=== PATIENT | female | born 2000 | race Asian ===

== ENCOUNTER 2021-07-02 15:00 | Emergency (ER) | payer BC, SELFPAY ==
[2021-07-02 15:39] VITALS: BP 115/68; PULSE 74; O2SAT 97
[2021-07-02 15:40] VITALS: PULSE 60; RESP 18; TEMP 36.3; O2SAT 98; BMI 20.4
[2021-07-02 16:12] VITALS: BP 87/47; PULSE 57; RESP 18; TEMP 35.9; O2SAT 99
--- NOTE | 2021-07-02 16:30 | ED_ITS ---
HPI - Allergic Reaction General Chief complaint: Allergic Reaction Stated complaint: ALLERG RXN TO UNK SOURCE,BODY HIVES,FACE SWELL Time Seen by Provider: 07/02/21 16:27 Source: patient Mode of arrival: EMS Limitations: no limitations History of Present Illness HPI narrative: This is a 20-year-old female with no known medical history presenting to the emergency department via ambulance for concerns of an allergic reaction. Patient tells me that today for lunch she was having peanut butter and blueberry jam sandwich and vegetables with pumpkin. Patient tells me 20 minutes after consuming this she started feeling itchy, noted her face to become swollen particularly her eyes. She tells me she had a little bit of shortness of breath, but not too bad. She tells me this is never happened to her before. She has no known allergies. She denies nausea, vomiting, abdominal pain, diarrhea, fevers, chills, chest pain. MD complaint: allergic reaction and facial swelling Onset (ago): minute(s) (1) Exposure: food (Possibly pumpkin or peanut butter) Symptoms: rash, itching and facial swelling Severity: moderate Treatment prior to arrival: none Previous Allergic Reaction History: none Related Data Previous Rx's Medication Instructions Recorded diphenhydramine HCl 25 mg capsule 50 mg PO Q6H PRN #20 cap 07/02/21 (Benadryl) epinephrine 0.3 mg/0.3 mL 0.3 mg (0.3 mL) IM Q4H PRN #1 ea 07/02/21 injection, auto-injector (EpiPen) Allergies Allergy/AdvReac Type Severity Reaction Status Date / Time Unable to Assess Allergy Unverified 07/02/21 16:28 Review of Systems Review of Systems: Constitutional : No Weight loss, No Fever, No Chills, No Fatigue, No Malaise ENT/Mouth : No sore throat, No ,Rhinorrhea, No tongue swelling. No lip swelling Eyes: No Eye Pain, No Swelling, No Redness Cardiovascular : No Chest Pain, + SOB, No Dyspnea on Exertion, No Orthopnea, No Edema, No Palpitations Respiratory : No Cough, No Sputum, No Wheezing Gastrointestinal : No Nausea, No Vomiting, No Diarrhea, No Constipation, No abdominal Pain, No Hematochezia, No Melena Genitourinary : No Dysuria, No Urinary Frequency, No Hematuria, Musculoskeletal : No joint pain, No Myalgias, No Joint Swelling Skin : No Skin Lesions, + rash, +urticaria Neuro : No Weakness, No Numbness, No Dizziness, No Headache All other systems reviewed and are negative Yes all other systems are reviewed and are negative FOR[facility]LY [facility], [facility] Past Medical History Attestation statement: The following information was validated with the patient. Source: old records reviewed and nursing notes reviewed Social History Social History Advance Directives: No Advance Directives Information Provided: Yes Physical Exam Vital Signs: Vital Signs: Last Vital Signs Temp 96.7 F L 07/02/21 16:12 Pulse 57 07/02/21 16:12 Resp 18 07/02/21 16:12 BP 87/47 L 07/02/21 16:12 Pulse Ox 99 07/02/21 16:12 BMI result Body Mass Index 20.4 VSS Appearance: Alert.? Oriented X3.? No acute distress.? Head: Normocephalic, atraumatic, no step-offs or deformities Eyes: Pupils equal, round and reactive to light.? ENT: Pharynx normal.? Tongue not swollen. Patient controlling secretions well. Neck: Normal inspection.? Neck supple.? CVS: Normal heart rate and rhythm.? Pulses normal.? Respiratory: No respiratory distress.? Breath sounds normal.? Abdomen: Soft and nontender.? Skin: Skin warm and dry.? Normal skin color.? Normal skin turgor.?+ uritcaria and hives to bilateral arms and to face. Extremities: No lower extremity edema.? No calf ttp. 5/5 strength to bilateral upper and lower extremities Back: No midline tenderness, no C-spine tenderness, full range of motion, no CVA tenderness bilaterally Neuro: Oriented X 3.? No motor deficit.? No sensory deficit. Course Reevaluation(s) Reevaluation #1: Patient is feeling much better after administration of Benadryl. I have educated her on EpiPen use and when it is appropriate to use 1. I have also given her information on where she can go get allergy tested, I have also educated her to stop eating nuts, and pumpkin until further notice and until allergy testing is done. I have advised her that when she uses her EpiPen she should call 911 and be medically evaluated. This time I feel comfortable discharge home. Patient's vital signs are stable at time of discharge. She appears well. Controlling secretions well. In good spirits. Time: 17:17 MDM - Allergic Reaction MDM Narrative Medical decision making narrative: 1600 20-year-old female no known medical history presents to the emergency department with an allergic reaction status post eating peanut butter in blueberry jam sandwich and pumpkin and vegetables. Physical examination shows uritcaria and hives to bilateral arms and to face. Controlling secretions well. Vitals are stable. Plan at this time is to give Benadryl, and observe patient. Medical Records Attestation: I reviewed the patient's medical records. Lab Data Attestation: I reviewed the patient's lab results. Critical Care Time Critical Care Time Critical Care Time: No Discharge Plan Discharge Clinical Impression: Allergic reaction, Urticaria Patient Disposition: Home, Self-Care Instructions: Urticaria (ED), General Allergic Reaction (ED) Additional Instructions: Take your medications as prescribed. If you were prescribed antibiotics today, it is important that you take your medication to their entirety, do not skip any doses, do not finish them early. Follow-up with your primary care provider this week. Return to the emergency department with new or worsening symptoms. In case of emergency call 911 I have sent an EpiPen to her pharmacy as well as Benadryl. As discussed, Benadryl can be used for mild reactions. If he starts feeling short of breath and having severe symptoms an EpiPen should be used. I have instructed you on how to use an EpiPen [facility]: [facility]. Address: [address] [place] [address] Prescriptions: New diphenhydramine HCl [Benadryl] 25 mg capsule 50 mg PO Q6H PRN (Reason: allergic reaction) Qty: 20 RF: 0 epinephrine [EpiPen] 0.3 mg/0.3 mL auto-injector 0.3 mg IM Q4H PRN (Reason: anaphylaxis) Qty: 1 RF: 0 Referrals: Physician,Unknown J [Primary Care Provider] - 2 days Stand Alone Forms: Work/School Release
[2021-07-02] MEDS: diphenhydrAMINE HCL 25 MG TABLET 50 MG PO (17:20)
[2021-07-02 17:38] VITALS: BP 108/76; PULSE 62; RESP 16; O2SAT 99
== END 2021-07-02 17:40 | disposition home or self-care (01) ==
PROVIDERS: Emergency Provider Emergency Medicine
DX: T78.1XXA Other adverse food reactions, not elsewhere classified, initial encounter (principal); L50.0 Allergic urticaria
CPT/HCPCS: 99282; 99283; Q0163